=== PATIENT | male | born 1995 | race Caucasian/White ===

== ENCOUNTER 2019-10-08 12:41 | Emergency (ER) | payer SELFPAY ==
--- NOTE | 2019-10-08 12:59 | XR_ITS ---
WS: [id number] RIGHT SECOND FINGER 3 VIEW TECHNIQUE: PA, oblique and lateral. HISTORY: trauma; index COMPARISON: None available. Acute posttraumatic amputation of 50% distal phalanx second finger. There are several small bony frag ments present at the fracture site. Extensive soft tissue injury with amputation of the soft tissue a lso. XR/XR finger RT min 2V [id number] IMPRESSION: Comminuted fracture involving the distal phalanx of the second finger with post traumatic amputation of the soft tissue and distal phalanx.
--- NOTE | 2019-10-08 12:59 | ED_ITS ---
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 Onset (ago): minute(s) Other Extremity Injury: Right: fingers Other injuries: none Handedness: right Place: home Severity: severe Relieving factors: none Exacerbating factors: none Context: direct blow, laceration and crush Associated symptoms: Reports no associated symptoms Review of Systems Skin/Breast: Reports: other (amputation R index finger tip) [facility] ED PFSH: Social History (Updated 05/13/19 @ 09:47 by Iwona Chan LPN) Smoking and tobacco status: current every day smoker Physical Exam Const: COMMON NORMALS: average body habitus, patient oriented x3, no limitations, healthy appearing, alert and well nourished GENERAL APPEARANCE: in distress (secondary to pain) Extremity: OTHER: distal tip (including full nail) R index finger amputation at distal phalanx; bleeding controlled Neuro: COMMON NORMALS: patient oriented x3 SENSORIUM/ORIENTATION: Yes alert Procedures Laceration Laceration 1: Site: hand Side (If applicable): right Size (cm): 2.5 Description: irregular Depth: simple, single layer Local Anesthetic: lidocaine 2% Amount of anesthesia used (mL): 4.0 Pre-repair: wound explored, irrigated extensively, extensive debridement and wound margins revised Skin layer closed with: nylon Size (cm): 4-0 Number of sutures: 10 Technique: simple, interrupted Subcutaneous layer closed with: vicryl and other (nail) Size: 4-0 Number of sutures: 5 Technique: simple, interrupted Course Vital Signs: Vital signs: Vital Signs Pulse Rate 64 10/08/19 14:41 Respiratory Rate 16 10/08/19 15:00 Blood Pressure 123/70 10/08/19 14:41 Pulse Oximetry 99 10/08/19 14:41 MDM - Extremity Injury (Upper) MDM Narrative: Medical decision making narrative: finger pad was defatted and re-attached using nylon and vicryl sutures for nail; pt will be placed on abx and recommend he follow up with orthopedics Imaging Data^: R index finger XR: Radiologist's impression: [facility] [address] [place] [address] XRay Report Signed Patient: Eugene Mcgraw Unit #: [id number] : 1995 Age/Sex: 24 / M ADM Date: 10/08/19 Loc: ER Room/Bed: Attending Dr: Ordering Provider/Ordering MD: Debbi Black Date of Service: 10/08/19 Procedure(s): XR finger RT min 2V 81397 Accession Number(s): [id number] Report Number: [id number] WS: [id number] RIGHT SECOND FINGER 3 VIEW TECHNIQUE: PA, oblique and lateral. HISTORY: trauma; index COMPARISON: None available. Acute posttraumatic amputation of 50% distal phalanx second finger. There are several small bony fragments present at the fracture site. Extensive soft tissue injury with amputation of the soft tissue also. XR/XR finger RT min 2V [id number] IMPRESSION: Comminuted fracture involving the distal phalanx of the second finger with posttraumatic amputation of the soft tissue and distal phalanx. Dictated By: Elizabeth Velasquez DO Signed By: Elizabeth Velasquez DO Signed Date/Time: 10/08/191407 DD/ 06 Discharge Plan Discharge Patient Disposition: Home, Self-Care Clinical Impression: Traumatic amputation of right index finger Open displaced fracture of distal phalanx of right index finger Qualifiers: Encounter type: initial encounter Qualified Code(s): S62.630B - Displaced fracture of distal phalanx of right index finger, initial encounter for open fracture Condition: Stable Prescriptions: New hydrocodone-acetaminophen 5-325 mg tablet 1 tab PO Q4H PRN (Reason: pain) Qty: 20 RF: 0 Keflex 500 mg capsule 500 mg PO Q6H 7 Days Qty: 28 RF: 0 Discharge Orders: Discharge Order (Routine); Ordered 10/08/19 Ordered By: Debbi Black Patient Instructions: Finger Amputation (ED), Finger Laceration (ED) Activity Restrictions/Additional Instructions: As discussed keep wound clean with warm soap and water. Follow-up with orthopedics as scheduled. Case management will contact you regarding this appointment. Monitor for signs of infection such as redness, swelling, drainage. 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
[2019-10-08 13:04] VITALS: BP 114/79; PULSE 60; RESP 16; O2SAT 100; BMI 20.3
[2019-10-08] MEDS: tetanus-diphtheria tox (adult) 0.5 mL SDV IM (13:11)
[2019-10-08] MEDS: morphine 4 mg/mL SDV 1 mL IVP ×2 (13:11→15:00)
[2019-10-08] MEDS: ceFAZolin 1,000 MG in sodium chloride 0.9% (plus) 50 ML 100 MG IV (13:13)
[2019-10-08] MEDS: lidocaine 2% INJ 20 mL INJECTION (13:50)
[2019-10-08 14:41] VITALS: BP 123/70; PULSE 64; RESP 18; O2SAT 99
[2019-10-08 15:00] VITALS: RESP 16
[2019-10-08 15:38] VITALS: BP 124/73; PULSE 65; RESP 16; O2SAT 95
--- NOTE | 2019-10-12 10:36 | DCPLANNER ---
sales service route manager had message to schedule a follow up appointment for patient with ortho. sales service route manager called the ortho clinic, spoke with Cintia, gave clinic patients information. sales service route manager was told that patients information would be printed and reviewed. Clinic will call watch case polisher and patient with appointment information.
--- NOTE | 2019-10-13 07:47 | DCPLANNER ---
Patient had an appointment scheduled for 10.12.19 with ortho, patient did attend the appointment.
== END 2019-10-08 15:30 | disposition home or self-care (01) ==
PROVIDERS: Emergency Provider Physician Assistant
DX: S68.120A Partial traumatic metacarpophalangeal amputation of right index finger, initial encounter (principal); S62.630B Displaced fracture of distal phalanx of right index finger, initial encounter for open fracture; W31.89XA Contact with other specified machinery, initial encounter; F17.210 Nicotine dependence, cigarettes, uncomplicated; Z23 Encounter for immunization
CPT/HCPCS: 12001; 12345; 73140; 90714; 96365; 96375; 96376; 99282; 99283; J0690; J2001; J2270

== ENCOUNTER 2019-10-13 11:56 | Day surgery (SDC) | payer SELFPAY ==
[2019-10-13 12:17] VITALS: BP 126/79; PULSE 70; RESP 18; TEMP 36.4; O2SAT 100
[2019-10-13] MEDS: sodium chloride 0.9% 1,000 ML 30 ML IV (12:35)
--- NOTE | 2019-10-13 12:35 | ANES.PREANE2 ---
Pre-Anesthetic Assessment Pre-Anesthetic Assessment: Height/Weight: Height 1.83 m Weight 68.039 kg Temp Pulse Resp BP Pulse Ox 97.6 F 70 18 126/79 100 10/13/19 12:17 10/13/19 12:17 10/13/19 12:17 10/13/19 12:17 10/13/19 12:17 Preop Diagnosis: Open fracture right index finger distal phalanx Proposed Procedure: Operation Date: 10/13/19 15:30 Proposed Procedures p Revision Amputation Finger right index(Right) - Abhi Acevedo MD Familial anesthetic complications: No hx Was Beta Lashanda taken within 24 hours: N/A Last intake: Intake Last Liquid Date 10/12/19 Last Liquid Time 21:00 Last Solid Date 10/12/19 Last Solid Time 21:00 Social: Social History: Tobacco and No alcohol Exam: Pre-Anes Outpt Exam: alert, oriented x 3, clear to auscultation bilaterally and regular rate & rhythm Airway: Cervical ROM: WNL MP: 1 Dentition: Full Pulmonary: Pulmonary: Asthma (mild) Anesthetic Plan: ASA status: 1 Anesthesia: MAC Risk of > 500 ml blood loss (7ml/kg in children): No Meds/Allergies Current Medications: Current Medications Generic Name Dose Route Start Last Admin Trade Name Freq PRN Reason Stop Dose Admin Sodium Chloride 1,000 mls @ 30 ml s/hr 10/13/19 08:00 10/13/19 12:35 Sodium Chloride 0.9% IV 10/14/19 07:59 30 mls/hr .Q24H DARRIUS Administration PFSH Anesthesia PFSH: Social History Smoking and tobacco status: current every day smoker Data Anesthesia Cardiac Studies: No Data to Display
--- NOTE | 2019-10-13 13:07 | W.PM.OPSUD ---
Surgery/Procedure H&P Update DATE OF PROCEDURE: October 13, 2019 DATE H&P PERFORMED: 10/12/19 PREOP DIAGNOSIS: Open fracture right index finger distal phalanx PLANNED PROCEDURE: Operation Date: 10/13/19 15:30 Proposed Procedures p Revision Amputation Finger right index(Right) - Abhi Acevedo MD
--- NOTE | 2019-10-13 13:11 | PM.OP ---
Operative Report Date of procedure: October 13, 2019 Pre-op Diagnosis: Open fracture right index finger distal phalanx Post-op diagnosis: other (Gangrene right index finger distal phalange) Post-op Findings: Same Procedure Done: Revision amputation right index finger Pathology: none sent Surgeon: Abhi Acevedo Anesthesia: Local (With sedation) Estimated blood loss (mL): 10 Findings: Tip to the right index finger distal to the previous suture line the remaining viable tissue tissue consists of a longer volar flap and dorsal and proximal leaving approximately 4 mm of a proximal nail bed. Multiple small distal fragments were identified. No purulence was noted. Condition: stable Disposition: same day Brief History: The patient is a 24-year-old male who underwent repair of a amputation of his distal phalanx of his right index finger with progressive necrosis. He was taken to the operating room for revision of the amputation to limit necrotic tissue and approximate tissues for more rapid healing Procedure: The patient was taken to the operating room and sedation was provided by anesthesia. The right upper extremity was prepped and draped in the usual fashion. A timeout was performed. A Shae drain was placed across the base of the index finger providing a tourniquet for hemostasis. Previous sutures removed and the necrotic tip of the digit including the distal nail and bed was removed. This left approximately 5 mm of the proximal nail bed remaining. The bone was lightly rongeured back in a the volar tissue immobilized for superior repair. The volar tissues were then drawn dorsally and loosely reapproximated with 3-0 Prolene suture. Xeroflo gauze 4 x 4's and tubigauze were applied.
[2019-10-13 14:07] VITALS: BP 107/58; PULSE 63; RESP 18; TEMP 36.1; O2SAT 96
[2019-10-13 14:08] VITALS: BP 138/99; PULSE 58; RESP 18; O2SAT 96
== END 2019-10-13 14:30 | disposition home or self-care (01) ==
PROVIDERS: Visit Provider Orthopaedic Surgery
PROC: (CPT 26951; principal; 2019-10-13 15:10)
DX: S62.630A Displaced fracture of distal phalanx of right index finger, initial encounter for closed fracture (principal); I96 Gangrene, not elsewhere classified; F17.210 Nicotine dependence, cigarettes, uncomplicated
CPT/HCPCS: 26951; 12345; J2250; J2704; J3010; J3490; J7030

== ENCOUNTER → 2019-10-28 14:46 | Outpatient (BNVA) | payer SELFPAY | PROVIDERS: Visit Provider Orthopaedic Surgery | DX: Z48.89 Encounter for other specified surgical aftercare (principal) | CPT/HCPCS: 73140 ==

== ENCOUNTER 2019-11-07 21:22 | Emergency (ER) | payer SELFPAY ==
[2019-11-07 22:38] VITALS: BP 111/71; PULSE 110; RESP 18; TEMP 37.1; O2SAT 93; BMI 20.9
--- NOTE | 2019-11-07 22:44 | XRR_ITS ---
PROCEDURE INFORMATION: Exam: XR Chest, 1 View Exam date and time: 11/07/2019 11:31 PM Age: 24 years old Clinical indication: Type not specified; Patient HX: Possible asthma attack. C/O chest pain and shortness of breath TECHNIQUE: Imaging protocol: XR of the chest Views: 1 view. COMPARISON: CR Chest 1 [place] [id number] 06/19/2016 11:54 PM FINDINGS: Lungs: Unremarkable. No consolidation. Pleural space: Unremarkable. No pleural effusion. No pneumothorax. Heart/Mediastinum: Unremarkable. No cardiomegaly. Bones/joints: Unremarkable. XR/XR chest 1V portable [id number] IMPRESSION: No acute findings.
--- NOTE | 2019-11-07 22:59 | ED_ITS ---
HPI - Asthma General: Chief Complaint: Asthma Stated Complaint: poss asthma attack Time Seen by Provider: 11/07/19 22:53 Source: patient Mode of arrival: ambulatory Limitations: no limitations History of Present Illness: HPI Narrative: Patient is a 24-year-old male who presents to ED today with complaints of worsening asthma symptoms. Patient is a known asthmatic and states he normally will use pro-air inhaler as well as albuterol nebulizers as needed at home. He states he no longer has any of the albuterol nebulizers and feels these work better. States he has been outside recently and the air quality has been poor due to increased dust and thinks this probably aggravated his symptoms. He has not been running fevers. He has no chest pains. MD complaint: asthma attack Onset (ago): day(s) Severity: mild Context: ran out of meds and allergen exposure Associated symptoms: Reports no associated symptoms; Deny chest pain, fever(s), hemoptysis, non-productive cough, productive cough or syncope Treatments Prior to Arrival: inhaled bronchodilator Related Data: Current Asthma Therapy: inhaled bronchodilator Review of Systems Const: Denies: fever(s) or chills ENMT: Denies: odynophagia Card: Reports: dyspnea on exertion; Denies: chest pain, palpitations, edema, lightheadedness, syncope, pre-syncope or orthopnea Resp: Reports: dyspnea; Denies: productive cough, non-productive cough, change in phlegm color, hemoptysis or chest congestion GI: Denies: nausea or vomiting Neuro: Denies: headache(s) PFS ED PFSH: Social History Smoking and tobacco status: current every day smoker Physical Exam Const: COMMON NORMALS: no acute distress, average body habitus, patient oriented x3, no limitations, healthy appearing, alert and well nourished ORIENTATION/CONSCIOUSNESS: Yes oriented to person, Yes oriented to place and Yes oriented to time Resp: COMMON NORMALS: normal respiratory effort AUSCULTATION: wheezes expiratory wheezes, inspiratory wheezes, scattered wheezes and throughout Cardio: COMMON NORMALS: regular rate and regular rhythm RATE: regular rate RHYTHM: regular rhythm Neuro: COMMON NORMALS: patient oriented x3 SENSORIUM/ORIENTATION: Yes alert, Yes oriented to person, Yes oriented to place and Yes oriented to time Skin: COMMON NORMALS: no rashes or lesions noted GENERAL SKIN EXAM: no rashes or lesions noted Course ED course: Patient feels better after IM steroids and DuoNeb nebulizer. He states he feels comfortable to go home. Will place him on a Medrol Dosepak and refill his albuterol vials for his nebulizer machine at home. Return to ED precautions given. Vital Signs: Vital signs: Vital Signs Temperature 98.8 F 11/07/19 22:38 Pulse Rate 119 H 11/07/19 23:55 Respiratory Rate 16 11/07/19 23:55 Blood Pressure 117/65 11/07/19 23:55 Pulse Oximetry 92 11/07/19 23:55 MDM - Asthma Imaging Data^: CXR: My impression: NAD Discharge Plan Discharge Patient Disposition: Home, Self-Care Clinical Impression: Asthma with acute exacerbation Qualifiers: Asthma severity: mild Asthma persistence: intermittent Qualified Code(s): J45.21 - Mild intermittent asthma with (acute) exacerbation Condition: Stable Prescriptions: New Medrol (Quintin) 4 mg tablets,dose pack See Rx Instructions .ROUTE .COMPLEX Qty: 21 RF: 0 albuterol sulfate 1.25 mg/3 mL solution for nebulization 1.25 mg INHALATION Q4H PRN (Reason: shortness of breath or wheezing) Qty: 75 RF: 0 No Action albuterol sulfate 2.5 mg /3 mL (0.083 %) solution for nebulization PRN RF: 0 hydrocodone-acetaminophen 5-325 mg tablet 1 tab PO Q4H Qty: 30 RF: 0 hydrocodone-acetaminophen 5-325 mg tablet 1 tab PO Q4H PRN (Reason: pain) Qty: 20 RF: 0 Discharge Orders: Discharge Order (Routine); Ordered 11/07/19 Ordered By: Debbi Black Patient Instructions: Asthma - Adult, Asthma Exacerbation - Adult, Asthma (ED) Discharge Date/Time: 11/07/19 23:57 Coding Level of Care Code ED Paster Supervisor for Chg Fwd Exam Expanded Problem Focused
[2019-11-07 23:12] VITALS: BP 131/79; PULSE 120; RESP 16; O2SAT 93
[2019-11-07] MEDS: ipratropium-albuterol 3 mL Neb INHALATION (23:22)
[2019-11-07 23:23] VITALS: PULSE 119; RESP 20; O2SAT 98
[2019-11-07 23:26] VITALS: PULSE 108
[2019-11-07 23:55] VITALS: BP 117/65; PULSE 119; RESP 16; O2SAT 92
== END 2019-11-07 23:57 | disposition home or self-care (01) ==
PROVIDERS: Emergency Provider Physician Assistant
DX: J45.21 Mild intermittent asthma with (acute) exacerbation (principal); F17.210 Nicotine dependence, cigarettes, uncomplicated
CPT/HCPCS: 12345; 71045; 94640; 96372; 99281; 99283; J2930

== ENCOUNTER → 2022-01-28 11:15 | Outpatient (BNVA) | payer SELFPAY | PROVIDERS: Visit Provider Registered Nurse Neonatal Intensive Care | DX: R50.9 Fever, unspecified (principal); R11.10 Vomiting, unspecified; J20.9 Acute bronchitis, unspecified | CPT/HCPCS: 87400; 87426 ==